=== PATIENT | male | born 1955 | race American Indian/Alaskan Native ===

== ENCOUNTER 2016-11-30 23:40 | Emergency (ER) | payer BC ==
[2016-11-30 23:46] VITALS: BMI 29.0
[2016-11-30 23:51] VITALS: BP 118/84; RESP 16; TEMP 98.1
--- NOTE | 2016-11-30 23:56 | ED PDOC ---
Arrival/HPI - General Chief Complaint: Alcohol Ingestion Time Seen by Provider: 11/30/16 23:41 Historian: Patient, Police - History of Present Illness Narrative History of Present Illness (Text): 11/30/16 23:54 -61 y/o male, no pmh, nkda, biba due to found etoh intoxicated in the public and found by the police which he was asked to go to the ER department by the ambulance. Pt. is here, non-agitated, reasonable, stated that to call his and to him up, no fall or trauma, no pain or discomfort, no head or neck injury , no dizziness, no abdominal pain, no other medical or psychological complaints. Past Medical History - Provider Review Nursing Documentation Reviewed: Yes Family/Social History - Physician Review Nursing Documentation Reviewed: Yes Family/Social History: Unknown Family HX Allergies/Home Meds Allergies/Adverse Reactions: Allergies No Known Allergies Allergy (Verified 12/01/16 00:34) Review of Systems - Physician Review All systems were reviewed & negative as marked: Yes - Review of Systems Constitutional: absent: Fatigue, Fevers Eyes: absent: Vision Changes ENT: absent: Hearing Changes Respiratory: absent: Cough, Sputum Cardiovascular: absent: Chest Pain Gastrointestinal: absent: Abdominal Pain, Diarrhea, Nausea, Vomiting Musculoskeletal: absent: Arthralgias, Back Pain Skin: absent: Rash, Pruritis, Skin Lesions, Laceration, Abscess, Ulcer, Cellulitis Neurological: absent: Headache, Dizziness, Focal Weakness, Gait Changes, Speech Changes, Facial Droop, Disequilibrium, Seizure Physical Exam Vital Signs Reviewed: Yes Vital Signs Temp Pulse Resp BP Pulse Ox 11/30/16 23:51 98.1 F 86 16 118/84 98 Temperature: Afebrile Blood Pressure: Normal Pulse: Regular Respiratory Rate: Normal Appearance: Positive for: Well-Appearing, Non-Toxic, Comfortable Pain Distress: None Mental Status: Positive for: Alert and Oriented X 3 - Systems Exam Head: Present: Atraumatic, Normocephalic. No: Tenderness, Contusion, Swelling, Ecchymosis, Abrasion, Laceration, Other Pupils: Present: PERRL Extroacular Muscles: Present: EOMI Conjunctiva: Present: Normal Mouth: Present: Moist Mucous Membranes Nose (Internal): Present: Normal Inspection, No Active Bleeding, Moist. No: Rhinorrhea, Purulent Mucous, Septal Hematoma, Epistaxis Neck: Present: Normal Range of Motion, Trachea Midline. No: MIDLINE TENDERNESS , Paraspinal Tenderness, Lymphadenopathy Respiratory/Chest: Present: Clear to Auscultation, Good Air Exchange. No: Respiratory Distress, Accessory Muscle Use Cardiovascular: Present: Regular Rate and Rhythm, Normal S1, S2. No: Murmurs Abdomen: Present: Normal Bowel Sounds. No: Tenderness, Distention, Peritoneal Signs Back: Present: Normal Inspection. No: CVA Tenderness, Midline Tenderness, Paraspinal Tenderness Upper Extremity: Present: Normal Inspection. No: Cyanosis, Edema Lower Extremity: Present: Normal Inspection. No: Edema Neurological: Present: GCS=15, CN II-XII Intact, Speech Normal, Motor Func Grossly Intact, Gait Normal, Memory Normal Skin: Present: Warm, Dry, Normal Color. No: Rashes Psychiatric: Present: Alert, Oriented x 3, Normal Insight, Normal Concentration Medical Decision Making ED Course and Treatment: 11/30/16 23:53 -FS 89 -Pt.'s is called, will come to hot die picker the patient. 12/01/16 00:35 -Pt. was agitated and refused to be resonable as he was getting "pissed off about why he has to come to the ER by the police when he was trying to go home" , started to be physically agitated, restraint was order. 12/01/16 00:44 - is here and stated that he just drink too much tonight, no psychiatric history and no drug abuse, wants to take the home. -Pt. is not homicidal or suicidal ideation, no auditory or visual hallucinations , remains calm now, wants to go home. -Discharge home with education on avoid overly drinking in the public, follow up with your own pmd within 2 days, return to the ER for any new or worsening signs or symptoms. - PA / [employer] / Resident Statement MD/DO has reviewed & agrees with the documentation as recorded. Disposition/Present on Arrival - Present on Arrival Any Indicators Present on Arrival: No History of DVT/PE: No History of Uncontrolled Diabetes: No Urinary Catheter: No History of Decub. Ulcer: No - Disposition Have Diagnosis and Disposition been Completed?: Yes Diagnosis: Alcohol intoxication Disposition: HOME/ ROUTINE Disposition Time: 23:53 Patient Plan: Discharge Condition: GOOD Additional Instructions: Discharge home with education on avoid overly drinking in the public, follow up with your own pmd within 2 days, return to the ER for any new or worsening signs or symptoms. Referrals: [facility] [place] [Outside] - Follow up with primary
[2016-12-01 00:49] VITALS: PULSE 86; O2SAT 98
== END 2016-12-01 01:08 | disposition home or self-care (01) ==
LOC: ED 23:40
DX: F10.129 Alcohol abuse with intoxication, unspecified (principal)